=== PATIENT | male | born 1945 | race Caucasian/White ===

== ENCOUNTER 2018-07-20 11:12 | Inpatient (IN) ==
--- NOTE | 2018-07-20 11:35 | Emergency Department Note ---
Disposition Clinical Impression: Neurological deficit present CVA (cerebral vascular accident) Qualifiers: CVA mechanism: unspecified Qualified Code(s): I63.9 - Cerebral infarction, unspecified Disposition: Admitted As Inpatient Condition: Good Forms: ED Satisfaction Letter Time of Disposition: 12:47 General Adult HPI - General Stated complaint: Stroke like symptoms,LKW 1030 Time Seen by Provider: 07/20/18 11:20 Source: patient Mode of arrival: wheelchair Limitations: no limitations Nursing Notes Reviewed: Yes Vital Signs Reviewed: Yes - History of Present Illness HPI Narrative: Patient is a 43-year-old male that presents emergency department with concern for stroke like symptoms. Patient states this morning when he was drinking a shake his hands started to have a tremor and he felt like he was not able to control it. Patient states that he did not have any difficulty with speech or ambulation. 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 Patient states is never had anything like this before. Patient states he is not having any pain associated with it but when he looked up on the Internet but the symptoms could be related to said that he rather c ould be concerning for a stroke so he wanted to come in and be evaluated. Patient stated that symptoms began approximately an hour and a half prior to arrival. This would be around 10 AM. - Related Data Home Medications Medication Instructions Recorded Confirmed Nitroglycerin [Nitrostat] 1 tab SL AD PRN 09/25/17 07/16/18 Previous Rx's Medication Instructions Recorded Doxycycline 100 mg PO BID #28 capsule 07/16/18 Mupirocin [Bactroban Oint] 22 appl TP BID #1 tube 07/16/18 Allergies Allergy/AdvReac Type Severity Reaction Status Date / Time No Known Allergies Allergy Verified 07/16/18 11:12 All systems ED: reviewed and negative except as stated. Constitutional: Denies: fever Cardiovascular: Denies: chest pain Respiratory: Denies: dyspnea Gastrointestinal: Denies: abdominal pain Neurological: Reports: other (Tremor). Denies: headache, weakness, numbness, paresthesias, abnormal gait Past Medical History - Past Medical History Medical history: Reports: other Surgical history: Reports: non-contributory, other - Social History Smoking Status: Never smoker Smokeless Tobacco Status: No Alcohol use: Reports: none Drug use: Reports: none Physical Exam - General Limitations: no limitations General appearance: alert, in no apparent distress - Head Head exam: atraumatic, normocephalic - Eye Eye exam: Present: normal appearance, EOMI - Neck Neck exam: Present: normal inspection, full ROM, trachea midline - Respiratory Respiratory exam: Present: normal lung sounds bilaterally. Absent: respiratory distress, wheezes - Cardiovascular Cardiovascular exam: Present: regular rate, normal rhythm, normal heart sounds, +S1 - Abdominal Exam Abdominal exam: Present: soft, Non-Tender, normal bowel sounds - Neurological Exam Neurological exam: Present: alert, oriented X3 - Expanded Neurological Exam Speech: Present: fluid speech Cranial nerves: EOM function (II, III, IV, ): Normal, facial sensation (V): Normal, facial palsy (VII): Normal, gag reflex (IX): Normal, spinal accessory function (XI): Normal, tongue deviation (XII): Normal Cerebellar function: finger to nose: Abnormal Right, heel to redman: Normal Cerebellar function: normal gait Motor strength - LUE: 5/5 Motor strength - RUE: 4/5 Motor strength - LLE: 5/5 Motor strength - RLE: 5/5 Upper motor neuron exam: pronator drift: Absent bilaterally Sensory exam upper extremity: light touch: Normal Sensory exam lower extremity: light touch: Normal Coma Scale Eye Opening: Spontaneous Coma Scale Motor Response: Obeys Commands Coma Scale Verbal Response: Oriented Coma Scale Total: 15 - Psychiatric Psychiatric exam: Present: normal affect, normal mood - Skin Skin exam: Present: warm, dry, intact Course Vital Signs Temperature 98.7 F 07/20/18 11:23 Pulse Rate 76 07/20/18 11:23 Respiratory Rate 18 07/20/18 11:23 Blood Pressure 156/83 07/20/18 11:23 O2 Sat by Pulse Oximetry 97 07/20/18 11:23 Temperature 98.7 F 07/20/18 11:23 Pulse Rate 70 07/20/18 11:55 Respiratory Rate 18 07/20/18 11:55 Blood Pressure 152/85 07/20/18 11:55 O2 Sat by Pulse Oximetry 99 07/20/18 11:55 Oxygen Delivery Oxygen Delivery Room Air Medical Decision Making - MDM Narrative Medical decision making narrative: Due the patient presenting to emergency department with concern for potential stroke a stroke alert was called. Patient went directly to CT scan for evaluation. We will speak to [facility]'s neurology team. The stroke team did not recommend giving TPA due to the patient's onset of symptoms being somewhat unclear as well as the patient's deficits only being in the right hand. The patient was in agreement with this. Patient's laboratory testing is relatively unremarkable and a head CT did not show any acute findings at this time. The patient will still require admission to the hospital for further evaluation of his strokelike symptoms. 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 The MRI will help better identify the lesion. Due to the patient not having her CTPA the patient is able stay here at [place] for further evaluation and management of his neurologic symptoms. I called and spoke the admitting hospitalist Dr. Gore and she is accepted the patient to their service. Patient be admitted to the hospital at this time for further eval uation and management. - Medical Records Medical records reviewed: Yes I reviewed the patient's medical records. - Lab Data Lab results reviewed: Yes I reviewed the patient's lab results. Result diagrams: 07/20/18 11:34 07/20/18 11:34 Lab Results 07/20/18 07/20/18 07/20/18 Range/Units 11:34 11:34 11:34 WBC 4.4 (4.3-11.1) K/mcL RBC 4.59 (4.19-5.50) M/mcL Hgb 15.1 (12.9-16.9) g/dL Hct 42.2 (37.5-50.1) % MCV 91.9 (83.0-100.0) fL MCH 32.9 (28.0-33.3) pg MCHC 35.8 H (31.6-35.5) g/dL RDW 12.3 (11.5-14.5) % Plt Count 164 (140-400) K/mcL MPV 9.8 (9.4-12.4) fL PT 11.4 (9.4-12.1) Seconds INR 1.0 APTT 30.5 (26.0-36.0) Seconds Sodium 139 (136-145) mEq/L Potassium 4.0 (3.5-5.1) mEq/L Chloride 102 (98-107) mEq/L Carbon Dioxide 27 (23-29) mEq/L BUN 16 (8-23) mg/dL Creatinine 0.78 (0.70-1.30) mg/dL Est GFR ( Amer) > 60 (> 60) Est GFR (Non-Af Amer) > 60 (> 60) BUN/Creatinine Ratio 21 (6-26) Glucose 157 H (70-105) mg/dL Calculated Osmolality 292 (280-300) Calcium 9.2 (8.6-10.3) mg/dL Troponin I < 0.03 (< 0.04) ng/mL - Radiology Data Radiology results reviewed: Yes I reviewed the patient's radiology results. Head CT 07/20/18 11:24 IMPRESSION: No acute intracranial abnormality. Findings were discussed with Dr. Evie Bird at 11:38 am on 07/20/2018. D/ / Reinier Leo MD / Reinier Leo MD Interpreting Provider: Reinier Leo MD - EKG Data EKG #1 EKG attestation: Yes I reviewed and interpreted this EKG. EKG results narrative: EKG shows a sinus rhythm at a rate of 72 bpm, MO interval 195, QRS duration of 83, QTC of 447. No STEMI noted on EKG. This is compared to previous EKG on 07/22/13. NIH Stroke Scale - Level of Consciousness LOC: Alert - LOC Questions LOC Questions: Answers both correctly - LOC Commands LOC Commands: Performs both correctly - Best Gaze Best Gaze: Normal - Visual Visual: No visual loss - Facial Palsy Facial Palsy: Normal - Motor Arms Motor Arm-Left: No drift for 10 seconds Motor Arm-Right: No drift for 10 seconds - Motor Legs Motor Leg-Left: No drift for 5 seconds Motor Leg-Right: No drift for 5 seconds - Limb Ataxia Limb Ataxia: Present in ONE limb - Sensory Sensory: Normal - Best Language Best Language: No aphasia - Dysarthria Dysarthria: Normal - Extinction and Inattention Extinction and Inattention: Normal - NIHSS Total Score NIHSS Total Score: 1
[2018-07-20 11:42] LABS: Hematocrit 42.2 % (37.5-50.1); Hemoglobin 15.1 g/dL (12.9-16.9); Mean Corpuscular HGB Conc 35.8 g/dL (31.6-35.5); Mean Corpuscular Hemoglobin 32.9 pg (28.0-33.3); Mean Corpuscular Volume 91.9 fL (83.0-100.0); Mean Platelet Volume 9.8 fL (9.4-12.4); Platelet Count 164 K/mcL (140-400); Red Blood Count 4.59 M/mcL (4.19-5.50); Red Cell Distribution Width 12.3 % (11.5-14.5)
[2018-07-20 11:48] LABS: Prothrombin Time 11.4 Seconds (9.4-12.1)
--- NOTE | 2018-07-20 11:48 | Emergency Department Note ---
Disposition Clinical Impression: Neurological deficit present Disposition: Still a Patient General Adult HPI - General Chief complaint: ED Neuro Symptoms/Deficit Stated complaint: Stroke like symptoms,LKW 1030 Time Seen by Provider: 07/20/18 11:20 Source: patient Mode of arrival: wheelchair Limitations: no limitations - History of Present Illness Pain Scale: 0 - Related Data Home Medications Medication Instructions Recorded Confirmed Nitroglycerin [Nitrostat] 1 tab SL AD PRN 09/25/17 07/16/18 Previous Rx's Medication Instructions Recorded Doxycycline 100 mg PO BID #28 capsule 07/16/18 Mupirocin [Bactroban Oint] 22 appl TP BID #1 tube 07/16/18 Allergies Allergy/AdvReac Type Severity Reaction Status Date / Time No Known Allergies Allergy Verified 07/16/18 11:12 Constitutional: Denies: fever Cardiovascular: Denies: chest pain Respiratory: Denies: dyspnea Gastrointestinal: Denies: abdominal pain Neurological: Reports: other (Tremor). Denies: headache, weakness, numbness, paresthesias, abnormal gait Past Medical History - Past Medical History Medical history: Reports: other Surgical history: Reports: non-contributory, other - Social History Smoking Status: Never smoker Smokeless Tobacco Status: No Alcohol use: Reports: none Drug use: Reports: none Physical Exam - General Limitations: no limitations General appearance: alert, in no apparent distress Course Vital Signs Temperature 98.7 F 07/20/18 11:23 Pulse Rate 67 07/20/18 11:23 Respiratory Rate 18 07/20/18 11:23 Blood Pressure 141/83 07/20/18 11:23 O2 Sat by Pulse Oximetry 97 07/20/18 11:23 Temperature 98.7 F 07/20/18 11:23 Pulse Rate 67 07/20/18 11:23 Respiratory Rate 18 07/20/18 11:23 Blood Pressure 141/83 07/20/18 11:23 O2 Sat by Pulse Oximetry 97 07/20/18 11:23 Oxygen Delivery Oxygen Delivery Room Air Medical Decision Making - Lab Data Result diagrams: 07/20/18 11:34 Lab Results 07/20/18 Range/Units 11:34 WBC 4.4 (4.3-11.1) K/mcL RBC 4.59 (4.19-5.50) M/mcL Hgb 15.1 (12.9-16.9) g/dL Hct 42.2 (37.5-50.1) % MCV 91.9 (83.0-100.0) fL MCH 32.9 (28.0-33.3) pg MCHC 35.8 H (31.6-35.5) g/dL RDW 12.3 (11.5-14.5) % Plt Count 164 (140-400) K/mcL MPV 9.8 (9.4-12.4) fL Attestation Statement - Attestation Attestation: I examined this patient and my medical decision-making was reviewed with the Resident Physician. I agree with the documented findings, disposition and treatment plan as described except to the extent set forth below. 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 We have called STROKE alert. HCT (-)
[2018-07-20 11:50] LABS: Activated Partial Thrombo Time 30.5 Seconds (26.0-36.0)
[2018-07-20] MEDS ORDERED: Aspirin 81 MG TAB.CHEW PO STA (11:55)
[2018-07-20 12:14] LABS: BUN/Creatinine Ratio 21 (6-26); Blood Urea Nitrogen 16 mg/dL (8-23); Calcium 9.2 mg/dL (8.6-10.3); Carbon Dioxide 27 mEq/L (23-29); Chloride 102 mEq/L (98-107); Glucose 157 mg/dL (70-105); Osmolality,Calculated 292 (280-300); Sodium 139 mEq/L (136-145); Troponin I < 0.03 ng/mL (< 0.04); eGFR For Non-African Americans > 60 (> 60)
--- NOTE | 2018-07-20 14:58 | Internal Med History&Physical ---
Date of Encounter: 07/20/18 Time of Encounter: 14:58 Internal Medicine - H&P: HPI History of present illness: Patient is a 43-year-old male that presents emergency department with tremor of his right hand and he could not controle it. He denies other neuro symptoms including slurred speech,numbness or tingling. 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 [facility]'s neurology team was consulted and and they did not recommend TPA. CT did not show any acute findings. Patient was admitted to the hospital at this time for further evaluation and management. Past Med Surg Social Fam HX - Past Medical History Medical history: other Additional medical history: heart attack 2009 - Past Surgical History Surgical History: non-contributory, other Additional surgical history: heart stents - Social History Smoking Status: Never smoker Smokeless Tobacco Status: No Alcohol use: none Drug use: none - Family History Brother Living Status: Still Living Hx Family Cardiac Disorders: Yes (open heart surgery, stent placement) Internal Medicine - H&P: Meds Nitroglycerin [Nitrostat] 1 tab SL AD PRN 09/25/17 [History] Doxycycline 100 mg PO BID #28 capsule 07/16/18 [Rx] Mupirocin [Bactroban Oint] 22 appl TP BID #1 tube 07/16/18 [Rx] Allergy/AdvReac Type Severity Reaction Status Date / Time No Known Allergies Allergy Verified 07/16/18 11:12 All Systems PM: A 10-system review of systems was performed and is negative for pertinent findings except as documented above in the HPI. - Constitutional Constitutional: no chills, no fever(s), no night sweats - EENT Eyes: no change in vision, no discharge, no pain, no photophobia Ears: no ear discharge, no ear pain, no tinnitus Nose, mouth and throat: no dysphagia, no nasal discharge, no neck pain, no sore throat - Cardiovascular Cardiovascular ROS IM: no chest pain, no diaphoresis, no dyspnea, no lightheadedness, no palpitations, no syncope - Respiratory Respiratory: no cough, no dyspnea, no wheezing, no excessive phlegm production - Gastrointestinal Gastrointestinal: no abdominal pain, no diarrhea, no hematemesis, no hematochezia, no melena, no nausea, no vomiting - Musculoskeletal Musculoskeletal ROS IM: no numbness, no tingling - Integumentary Integumentary IM: no rash, no unusual bruising - Neurological Neurological ROS: no confusion, no convulsions, no focal weakness, no numbness, no tingling, no tremor(s) - Hematologic/Lymphatic Hematologic/Lymphatic: no easy bruising - Constitutional Vitals: Temp Pulse Resp BP Pulse Ox 98.7 F 70 18 152/85 99 07/20/18 11:23 07/20/18 11:55 07/20/18 11:55 07/20/18 11:55 07/20/18 11:55 General appearance: Present: A&O X 3 Exam: as below - Head Head exam: Present: atraumatic, normocephalic - Eye Eye exam: Present: PERRL, conjuntiva pink, sclera anicteric Pupils: Present: PERRL - Neck Neck exam general surgery: Present: supple, trachea midline. Absent: lymphadenopathy - Respiratory Respiratory exam: Present: CTAB. Absent: accessory muscle use, rales, rhonchi, wheezes - Cardiovascular Cardiovascular exam: Present: RRR, +S1, +S2. Absent: diastolic murmur, gallop, rubs, systolic murmur - GI/Abdominal GI/Abdominal exam: Present: normal bowel sounds, soft, no peritoneal signs. Absent: distended, tenderness - Extremities Exam Extremities exam: Present: warm, radial pulses palpable and symmetrical. Absent: calf tenderness, cyanotic, pedal edema - Neurological Exam Neurological exam: Present: CN II-XII intact, oriented X3, no focal deficits. Absent: pronater drift, facial droop, speech deficit - Skin Skin exam: Present: dry, intact Internal Med - H&P Results - Labs CBC & Chem 7: 07/20/18 11:34 07/20/18 11:34 Labs: Short CBC 07/20/18 Range/Units 11:34 WBC 4.4 (4.3-11.1) K/mcL Hgb 15.1 (12.9-16.9) g/dL Hct 42.2 (37.5-50.1) % Plt Count 164 (140-400) K/mcL BMP 07/20/18 11:34 Sodium 139 Potassium 4.0 Chloride 102 Carbon Dioxide 27 BUN 16 Creatinine 0.78 Glucose 157 H Calcium 9.2 Cardiac Enzymes 04/05/19 Range/Units 11:34 Troponin I < 0.03 (< 0.04) ng/mL - Impressions ITS Impressions Head CT 07/20/18 11:24 IMPRESSION: No acute intracranial abnormality. Findings were discussed with Dr. Evie Bird at 11:38 am on 07/20/2018. D/ / Reinier Leo MD / Reinier Leo MD Interpreting Provider: Reinier Leo MD - Assessment and Plan (1) TIA (transient ischemic attack) Current Visit: Yes Status: Acute Assessment and plan: *TIA PLAN: -CPP x 2 q 8 hr -EKG now and in AM -ASA -Tylenol 650 mg PO q 4-6 hr PRN headache (2) DVT prophylaxis Current Visit: Yes Status: Acute - Time Spent With Patient Total time spent is greater than 50% in coordination of care (as documented) at patient's floor/unit and/or counseling patient:
[2018-07-20] MEDS ORDERED: Ondansetron 4 MG/2 ML VIAL IVP PRN (14:59)
[2018-07-20 16:00] LABS: Chol/HDL Ratio 1.9 (0-4.9); Cholesterol 146 mg/dL (< 200); HDL Cholesterol 77 mg/dL (40-59); LDL Cholesterol,Calculated 48 mg/dL (0-99); Triglycerides 104 mg/dL (< 150)
--- NOTE | 2018-07-20 16:30 | Neurology - Consult Note ---
<Bahman Salmon - Last Filed: 07/20/18 16:25> Date of Encounter: 07/20/18 Time of Encounter: 16:25 Assessment and Plan (1) TIA (transient ischemic attack) Current Visit: Yes Status: Acute suspect TIA with quick resolution of symptoms; TIA versus CVA. Patient reporting right arm dysmetria, discoordination of right hand and diminished lumber cutter strength of right hand. symptoms do not appear to be myelopathic or radicular. Symptoms lasting approximately 1.5 hours and has completely resolved. He is back to baseline. No prior history of CVA or TIA. Risk factors include CAD and age. CT of head in the ED negative for acute abnormality. EKG-SR rate of 72 NIH-0 ABCD-4 Clinically his neurological exam is nonfocal and nonlateralizing. He is completely back to baseline status and all symptoms have resolved. I suspect is most likely had a TIA, Nonetheless given the discoordination and dysmetria there is some concern for possible infarct. PLAN: Proceed with CVA rule out. MRI of the brain, carotid duplex scan and echocardiogram, obtain lipid panel. Continue daily aspirin and add statin med. NIH assessments per protocol. neurology will follow up tomorrow History of Present Illness Chief complaint: discoordinated movement of right hand and right hand weakness HPI: Mr. Downing is a 73 year old male with a PMH of CAD with IL stents 3. Neurology has been consulted for evaluation of TIA versus CVA. the patient reports that at approximately 10 AM this morning all drinking a smoothie began having difficulty bringing his cup/hand to his mouth due to discoordinated movements. he denied any tremulous activity of the rt hand but reports that it was "swaying back and forth" and that his lumber cutter strength seemed weak. He notes that during this time he was also experiencing some lightheadedness. He reports that he looked his symptoms up on the Internet and is concerned in that he may have been having a stroke which prompted him to seek treatment. While in the ED reports that he was still having the discoordination (dysmetria) and he was having difficulty with a finger to nose test with his right hand. The symptoms lasted approximately 1-1/2 hours and then suddenly resolved. a stroke alert was called and the [facility] telemetry stroke services did not recommend TPA but recommended hospital admission for further workup for possible stroke. At the time of my assessment the patient neuro exam is nonfocal and nonlateralizing. He denies experiencing any visual changes, headaches, dysphagia, dysarthria, facial asymmetry, or paresthesias. Further, he denies chest pain, palpitations, shortness of breath or tachycardia arrhythmias. CT imaging of the head in the ED negative for an acute intracranial process. Review of CBC and chemistry panel are both unremarkable. Vital signs reviewed and is found to be mildly hypertensive with SBP is ranging in the 140s to 150s. Neuro will continue with CVA versus TIA rule out. Past Med Surg Social Fam HX - Past Medical History Medical history: other Additional medical history: heart attack 2009 - Past Surgical History Surgical History: non-contributory, other Additional surgical history: heart stents - Social History Smoking Status: Never smoker Smokeless Tobacco Status: No Alcohol use: none Drug use: none - Family History Brother Hx Family Cardiac Disorders: Yes (CAD, CABG at age 40) Medications and Allergies Nitroglycerin [Nitrostat] 1 tab SL AD PRN 09/25/17 [History] Doxycycline 100 mg PO BID #28 capsule 07/16/18 [Rx] Mupirocin [Bactroban Oint] 22 appl TP BID #1 tube 07/16/18 [Rx] Allergy/AdvReac Type Severity Reaction Status Date / Time No Known Allergies Allergy Verified 07/16/18 11:12 All Systems: The remainder of the systems were reviewed and are negative Review of Systems: REVIEW OF SYSTEMS GENERAL: Negative for any nausea, vomiting, fevers, chills, or weight loss NEUROLOGIC: Negative for any visual changes, headache, facial asymmetry, dysphagia, dysarthria, hemiparesis, hemisensory deficits, vertigo,paresthesias or ataxia POSITIVE-diminished right hand and lumber cutter strength and discoordination of right arm, also reporting dysmetria, lightheadedness HEENT: Negative for any head trauma, neck trauma, neck stiffness CARDIAC: Negative for any chest pain,palpitations, tachycardia heart rate, peripheral edema GASTROINTESTINAL: Negative for any abdominal pain, nausea, vomiting, diarrhea GENITOURINARY: Negative for any dysuria,incontinence. ENDOCRINE: Thyroid trouble, heat/cold intolerance, excessive sweating MUSCULOSKELETAL: POSITIVE-loss of lumber cutter strength to right hand which has since resolved Physical Examination - Vital Signs Vital Signs: Initial Vital Signs Temp Pulse Resp BP Pulse Ox 98.7 F 76 18 156/83 97 07/20/18 11:23 07/20/18 11:23 07/20/18 11:23 07/20/18 11:23 07/20/18 11:23 - Exam Exam: Examination: General Examination: *CONSTITUTIONAL: Alert and oriented x3, no acute distress *GENERAL APPEARANCE OF PATIENT elderly male,appears healthy and well g roomed *EYES: pupils equal, round, reactive to light and accommodation, conjunctiva clear *CARDIOVASCULAR RRR, S1, S2, no peripheral edema, distal temperature normal, dorsalis pedis pulses . See vital signs Musculoskeletal: *GAIT AND STATION normal, with normal Romberg testing, no abnormalities such as broad base gait or spasticity *ASSESSMENT OF MUSCLE STRENGTH IN THE UPPER AND LOWER EXTREMITIES bilateral deltoid, bicep, tricep, lumber cutter strength, hip flexors ,anterior tibialis, dorsoflexion of the foot 5/5 *MUSCLE TONE IN THE UPPER AND LOWER EXTREMITIES normal. No abnormal movements, fasciculations or atrophy identified. Neurological: *ORIENTATION to person, situation, time and place *RECURRENT AND REMOTE MEMORY intact *ATTENTION AND CONCENTRATION are normal *LANGUAGE FUNCTION no significant aphasia or dysarthia was noted. *FUND OF KNOWLEDGE aware of current events, past history, vocabulary *MENTAL attention span and concentration normal. *CN II optic fundi were normal, no papilledema noted. *CN III,IV, PERRLA extraocular eye movements were full, no nystagmus and no ptosis noted. *CN V shows normal sensation and jaw opens symmetrically. *CN VII shows normal facial movement symmetrically, upper and lower bilaterally. *CN VIII shows no significant hearing loss on exam *CN IX,,X palate elevated symmetrically *CN XI normal strength in the sternocleidomastoid muscles, symmetrical shoulder shrugging. *CN XII tongue protruded in the midline, with normal strength and movement. *SENSORY EXAMINATION light touch intact *REFLEXES: deep tendon reflexes were normal and symmetrical , grade 2/4 diffusely, no pathological reflexes were noted. *CEREBELLAR TESTING normal finger to nose, heel/knee/redman *PAIN LEVEL 0 Results - Laboratory Findings CBC and BMP: 07/20/18 11:34 07/20/18 11:34 Abnormal lab findings: Abnormal lab results MCHC 35.8 g/dL (31.6-35.5) H 07/20/18 11:34 Glucose 157 mg/dL (70-105) H 07/20/18 11:34 HDL Cholesterol 77 mg/dL (40-59) H 07/20/18 11:34 - Diagnostic Findings Additional findings: CT/CT stroke alert head wo con IMPRESSION: No acute intracranial abnormality. Consult Discharge Plan - Plan Referrals: NONE,PCP [Primary Care Provider] - <Radha Devries I - Last Filed: 07/21/18 13:34> Date of Encounter: 07/20/18 Assessment and Plan (1) TIA (transient ischemic attack) Current Visit: Yes Status: Acute I have personally performed a face to face diagnostic evaluation, including HPI, EXAM, which is included in the Assesment and plan, which was discussed with Bahman Salmon CNP, I agree with the above outlined documentation. Patient does not seem to have a typical focal motor neurological deficit but the symptoms seem to be concerning off flow TIA versus a stroke recommend getting a stroke workup currently on antiplatelet therapy suggested to continue further recommendation will depend on the result of MRI scan as if that is negative perhaps he may need an MRI of the cervical spine to exclude any cervical radiculopathy. Other treatment is as per primary team Radha Devries MD. Neurology History of Present Illness HPI: Mr. Downing is a 73 year old male All Systems: The remainder of the systems were reviewed and are negative Physical Examination - Vital Signs Vital Signs: Initial Vital Signs Temp Pulse Resp BP Pulse Ox 98.7 F 76 18 156/83 97 07/20/18 11:23 07/20/18 11:23 07/20/18 11:23 07/20/18 11:23 07/20/18 11:23 Results - Laboratory Findings CBC and BMP: 07/21/18 06:16 07/21/18 06:16 Abnormal lab findings: Abnormal lab results MCHC 35.8 g/dL (31.6-35.5) H 07/20/18 11:34 Glucose 157 mg/dL (70-105) H 07/20/18 11:34 POC Glucose 164 mg/dL (70-99) H 07/20/18 11:24 HDL Cholesterol 77 mg/dL (40-59) H 07/20/18 11:34
[2018-07-21 07:04] LABS: Hematocrit 39.1 % (37.5-50.1); Hemoglobin 14.1 g/dL (12.9-16.9); Mean Corpuscular HGB Conc 36.1 g/dL (31.6-35.5); Mean Corpuscular Hemoglobin 32.6 pg (28.0-33.3); Mean Corpuscular Volume 90.5 fL (83.0-100.0); Mean Platelet Volume 10.3 fL (9.4-12.4); Platelet Count 161 K/mcL (140-400); Red Blood Count 4.32 M/mcL (4.19-5.50); Red Cell Distribution Width 12.1 % (11.5-14.5)
[2018-07-21 07:13] LABS: Prothrombin Time 11.7 Seconds (9.4-12.1)
[2018-07-21 07:15] LABS: Activated Partial Thrombo Time 29.6 Seconds (26.0-36.0)
[2018-07-21 07:24] LABS: Chol/HDL Ratio 2.2 (0-4.9)
[2018-07-21 07:27] LABS: Alanine Aminotransferase 15 Units/L (7-52); Albumin/Globulin Ratio 1.5 (1.1-2.2); Alkaline Phosphatase 71 Units/L (34-104); Aspartate Amino Transferase 18 Units/L (13-39); BUN/Creatinine Ratio 20 (6-26); Bilirubin,Total 0.6 mg/dL (0.3-1.0); Blood Urea Nitrogen 15 mg/dL (8-23); Calcium 9.2 mg/dL (8.6-10.3); Carbon Dioxide 28 mEq/L (23-29); Chloride 102 mEq/L (98-107); Globulin 2.6 g/dL (2.4-3.5); Glucose 130 mg/dL (70-105); Magnesium 1.9 mg/dL (1.6-2.6); Osmolality,Calculated 289 (280-300); Phosphorous 3.2 mg/dL (2.7-4.5); Sodium 138 mEq/L (136-145); Total Protein 6.6 g/dL (6.4-8.9); eGFR For Non-African Americans > 60 (> 60)
[2018-07-21] MEDS ORDERED: Aspirin 81 MG TAB.CHEW PO SCH (09:00)
--- NOTE | 2018-07-21 13:38 | Neurology Progress Note ---
Date of Encounter: 07/21/18 Time of Encounter: 10:00 Assessment and Plan (1) TIA (transient ischemic attack) Current Visit: Yes Status: Acute (2) Embolic cerebral infarction Current Visit: Yes Status: Acute Though clinically patient did not have any significant focal motor or sensory neurological deficit but MRI of the brain did not shows multiple embolic infarct predominantly in the left hemisphere According to the MRI report Multiple (8) subcentimeter acute infarcts within the cortex and subcortical white matter of the left frontal and parietal lobes including the left precentral gyrus.No acute intracranial hemorrhage. Considering the overall in the left hemisphere suspect these likely from the left carotid but at the same time we do need to exclude a central etiology as well and need to look at the echocardiogram to make sure there is no embolic source and it currently patient is on aspirin suggested to add Plavix along with it continue on 81 mg aspirin as well as 75 mg of Plavix. Continue to monitor for any cardiac arrhythmias No indication to start on anticoagulation unless we see any critical stenosis on the carotid Follow-up carotid duplex result patient had it this morning Make sure there is no critical stenosis If all negative perhaps he could be discharged to home with follow-up with neurology 3-4 weeks on aspirin and Plavix Discussed in detail with the patient and his who is at the bedside Qualifiers: Precerebral and cerebral artery: unspecified cerebral artery Qualified Code(s): I63.40 - Cerebral infarction due to embolism of unspecified cerebral artery Subjective Interval history: Patient seen as an follow-up did not have any focal motor neurological deficit overall he is a stable MRI of the brain did shows multiple infarct in the left hemisphere likely embolic in nature Objective - Constitutional Vitals: Temp Pulse Resp BP Pulse Ox 98.2 F 64 16 148/73 96 07/21/18 07:33 07/21/18 07:33 07/21/18 12:00 07/21/18 12:00 07/21/18 12:00 - Neurological Exam Sensorimotor examination: Present: intact Motor Examination: Present: grossly full strength in all extremities Sensation intact: Present: intact Reflex and gait examination: intact Reflexes: Biceps: 1+, Triceps: 1+, Brachioradialis: 1+, Patella: 1+, Achilles: 1+ Mental Status Examination: Present: awake, alert, oriented to person, oriented to place, oriented to time, follows commands appropriately, answers questions ap propriately Cranial nerve examination: Present: PERRL, EOMI, corneal reflexes brisk symmetrically, no facial asymmetry is present, no dysarthria Cerebellar examination: Present: no dysmetria Results - Laboratory Findings CBC and BMP: 07/21/18 06:16 07/21/18 06:16 Abnormal lab findings: Abnormal lab results MCHC 36.1 g/dL (31.6-35.5) H 07/21/18 06:16 Glucose 130 mg/dL (70-105) H 07/21/18 06:16 POC Glucose 164 mg/dL (70-99) H 07/20/18 11:24 HDL Cholesterol 63 mg/dL (40-59) H 07/21/18 06:16 - Diagnostic Findings Additional findings: MRI of the brain showed Multiple (8) subcentimeter acute infarcts within the cortex and subcortical white matter of the left frontal and parietal lobes including the left precentral gyrus. No acute intracranial hemorrhage. Consult Discharge Plan - Plan Referrals: NONE,PCP [Primary Care Provider] -
--- NOTE | 2018-07-21 15:02 | Discharge Summary ---
- NOTES TO OUTPATIENT PROVIDER Notes to Outpatient Provider: Plavix added for CVA. Follow-up with neurology in 3-4 weeks. Orders not resulted at time of discharge: Pending orders 07/20/18 14:59 Urinalysis reflex Microscopic [URIN] Routine Date of Encounter: 07/21/18 Time of Encounter: 13:30 - Discharge Diagnosis (1) DVT prophylaxis Priority: Secondary Status: Acute (2) CVA (cerebral vascular accident) Priority: Primary Status: Acute Qualifiers: CVA mechanism: unspecified Qualified Code(s): I63.9 - Cerebral infarction, unspecified Hospital course: Mr. Downing is a 73 year old male with history of CAD status post PCI was admitted for right hand dysmetria. MRI showed multiple subcentimeter acute infarcts within the cortex and subcortical WM of left frontal/parietal lobe. ?Embolic. Seen in consultation with neurology who suggested to add Plavix in addition to aspirin. Carotid Doppler preliminary report only showed nonstenotic plaque at bilateral bifurcations and proximal ICA. Echocardiogram report was pending at the time of discharge but pt strongly expressed his wish to be discharged which I did not feel that it was unreasonable. I will follow up on Echocardiogram report tomorrow with the patient. Advised the pt to return to the ED if he develops worsening neurological symptoms. Discharge discussed with: patient, family, sql server consultant - Time Spent with Patient Total time spent providing and/or coordinating discharge services: 32 mins - Discharge Medications Prescriptions: New Aspirin 81 mg PO DAILY #30 tab.chew Atorvastatin [Lipitor] 40 mg PO HS #30 tablet Clopidogrel [Plavix] 75 mg PO DAILY #30 tablet Continue Nitroglycerin [Nitrostat] 1 tab SL AD PRN PRN Reason: Chest Pain Mupirocin [Bactroban Oint] 22 appl TP BID #1 tube No Action Doxycycline 100 mg PO BID #28 capsule Home Medications: Nitroglycerin [Nitrostat] 1 tab SL AD PRN 09/25/17 [History] Doxycycline 100 mg PO BID #28 capsule 07/16/18 [Rx] Mupirocin [Bactroban Oint] 22 appl TP BID #1 tube 07/16/18 [Rx] Aspirin 81 mg PO DAILY #30 tab.chew 07/21/18 [Rx] Atorvastatin [Lipitor] 40 mg PO HS #30 tablet 07/21/18 [Rx] Clopidogrel [Plavix] 75 mg PO DAILY #30 tablet 07/21/18 [Rx] Allergies/Adverse Reactions: Allergy/AdvReac Type Severity Reaction Status Date / Time No Known Allergies Allergy Verified 07/16/18 11:12 Date of admission: 07/20/18 14:59 Primary care physician: PCP NONE Consults: 07/20/18 15:03 Consult to Physician [CONS] Routine Consulting Provider: Radha Devries I Reason for Consult: CVA Time Notified: 15:04 Call Completed: Yes 07/21/18 10:08 Consult to Occupational Therapy [CONS] Routine Comment: Evaluate, develop and implement POC Reason for Consult: stroke Does patient have active BEDREST order?: No Is patient medically & hemodynamically stable?: Yes Patient assessed for mobility or mobilized this visit?: Yes Consult to Physical Therapy [CONS] Routine Comment: Evaluate, develop and implement POC Reason for Consult: stroke Does patient have active BEDREST order?: No Is patient medically & hemodynamically stable?: Yes Patient assessed for mobility or mobilized this visit?: Yes - Constitutional Vitals: Temp Pulse Resp BP Pulse Ox 98.2 F 64 16 148/73 96 07/21/18 07:33 07/21/18 07:33 07/21/18 12:00 07/21/18 12:00 07/21/18 12:00 General appearance: Present: A&O X 3 Exam: General: Alert and oriented, not in acute distress. HEENT:EOMI, pupils equal, round and reactive. Cardiovascular:Normal S1 & S2, No JVD. Pulse regular. Lungs: clear to auscultation, no wheezes/rales Abdomen:Soft, non-tender, no rigidity. Extremities:No deformity or swelling Neurological: CN II-XII intact, power and sensation fully intact in all 4 limbs. No cerebellar signs, unable to appreciate any R dysmetria today. Pronator drift -ve, Babinski downgoing bilaterally - Patient Status Disposition: Home, Self-Care Condition: Good Functional capacity at discharge: independent ambulation Overall status at discharge: patient is progressing back to baseline - Discharge Instructions Instructions: Ischemic Stroke (DC) Follow Up With: NONE,PCP [Primary Care Provider] - Radha Devries MD [Partnered Physician] - Additional Instructions: Plavix 75mg QD added Follow with neurology in 3-4 weeks. May need outpatient event monitor for possible underlying atrial fibrillation - Diet and Activity Activity: resume usual activities as tolerated Diet: low salt diet
[2018-07-21 16:10] VITALS: BP 143/81
== END 2018-07-21 17:39 | disposition home or self-care (01) | DRG 66 ==
LOC: 2SOUTHHOLD 11:12 → EMEROOARM 11:12 → SUATTDRO 14:59 → 2NENU 15:34
PROVIDERS: ADMIT Internal Medicine Nephrology; ATTEND Internal Medicine